=== PATIENT | female | born 1970 | race Caucasian/White ===

== ENCOUNTER → 2017-08-15 | Outpatient (CLI) | payer MEDICARE ==
[~2017-08-15] MED LIST: CALCIUM CARBONATE PO; CARB200T3 PEG; CHLO4TAB PO; LAMO200T PO; LEVO75TA5 PO; LIOT5TAB3 PO; NAPR220C2 PO; SIME125T10 PO; ZIPR60CA3 PO
== END ==
LOC: STAR 14:12
PROVIDERS: ATTEND Surgery
DX: Z02.9 Encounter for administrative examinations, unspecified (principal)

== ENCOUNTER 2017-08-19 08:08 | Day surgery (SDC) | payer MEDICARE ==
[~2017-08-19] VITALS: Ht 162.6 cm; Wt 97.9 kg
[~2017-08-19 08:08] MED LIST changes: +FENTANYL PF 100 MCG/2ML ONE; +MIDAZOLAM 1 MG/ML, 2ML ONE
[2017-08-19 08:29] LABS: HCG UR LOT HCG7030192
[2017-08-19] MEDS ORDERED: LACTATED RINGERS 1,000 ML IV SCH (08:41)
[2017-08-19 08:42] LABS: HCG UR OBC PASS
[2017-08-19] MEDS ORDERED: SUCCINYLCHOLINE 20 MG/ML, 10ML ONE (09:06)
[2017-08-19] MEDS ORDERED: PROPOFOL 10 MG/ML, 20ML ONE ×2 (09:06)
[2017-08-19] MEDS ORDERED: ONDANSETRON 2MG/ML, 2ML ONE (09:06)
[2017-08-19] MEDS ORDERED: CEFAZOLIN 1,000 MG ONE ×2 (09:06)
[2017-08-19] MEDS ORDERED: DEXAMETHASONE 4 MG/ML, 1ML ONE ×2 (09:07)
[2017-08-19] MEDS ORDERED: FENTANYL PF 100 MCG/2ML ONE ×2 (09:08→09:57)
[2017-08-19] MEDS ORDERED: OXYcodone 5 MG/5 ML ORAL.SOL UDC PO PRN (09:30)
[2017-08-19] MEDS ORDERED: ACETAMINOPHEN 325 MG TABLET PO PRN (09:30)
[2017-08-19] MEDS ORDERED: PROMETHAZINE 25 MG/ML, 1ML IV PRN (09:30)
[2017-08-19] MEDS ORDERED: ACETAMINOPHEN 650 MG/20.3 ML UDC ONE (09:57)
[2017-08-19] MEDS ORDERED: OXYcodone 5 MG/5 ML ORAL.SOL UDC ONE (09:57)
[2017-08-19] MEDS: FENTANYL PF 100 MCG/2ML IV PRN ×3 (10:04→10:15)
== END 2017-08-19 15:05 ==
LOC: OUT 08:08
PROVIDERS: ATTEND Surgery
DX: E04.2 Nontoxic multinodular goiter (principal); Z98.890 Other specified postprocedural states; E03.9 Hypothyroidism, unspecified; K21.9 Gastro-esophageal reflux disease without esophagitis; F31.9 Bipolar disorder, unspecified
CPT/HCPCS: 36415; 60240; 81025; 83970; 88307; 88333; C1760; J0330; J0690; J1100; J2405; J2704; J3010; J2250

== ENCOUNTER → 2018-01-02 | Outpatient (CLI) | payer MEDICARE ==
[~2018-01-02] MED LIST changes: -FENTANYL PF 100 MCG/2ML ONE; -LAMO200T PO; +LAMO200T2 PO; -MIDAZOLAM 1 MG/ML, 2ML ONE
== END | disposition home or self-care (01) ==
LOC: CFH 12:49
PROVIDERS: ATTEND Family Medicine
DX: N63.20 Unspecified lump in the left breast, unspecified quadrant (principal); R92.2 Inconclusive mammogram
CPT/HCPCS: 77065